=== PATIENT | female | born 1965 | race Asian ===

== ENCOUNTER 2017-09-18 12:12 | Inpatient (IN) | payer OTHER ==
[2017-09-18] MEDS: NS + KCL 20 MEQ 1,000 ML IV (01:54)
[~2017-09-18 12:12] MED LIST: LIDOCAINE 2% (SDV) 5 ML INJ
[2017-09-18] MEDS ORDERED: ONDANSETRON 4 MG INJ (16:13)
[2017-09-18] MEDS ORDERED: MIDAZOLAM 1 MG/ML 2 ML INJ (16:13)
[2017-09-18] MEDS ORDERED: METOCLOPRAMIDE 10 MG INJ (16:13)
[2017-09-18] MEDS ORDERED: ROCURONIUM 50 MG INJ ×2 (16:13→18:41)
[2017-09-18] MEDS ORDERED: PROPOFOL 20 ML (16:13)
[2017-09-18] MEDS ORDERED: CEFAZOLIN 1 GM INJ (16:38)
[2017-09-18] MEDS ORDERED: FENTAnyl 50 MCG/ML VIAL (17:02)
[2017-09-18] MEDS ORDERED: morphine 10 MG INJ (17:06)
[2017-09-18] MEDS: CEFAZOLIN 1 GM INJ (17:39)
[2017-09-18] MEDS: HEPARIN 1000 UNITS/ML 10 ML INJ (17:40)
[2017-09-18] MEDS: THROMBIN 5000 UNIT VIAL (17:40)
[2017-09-18] MEDS: GELATIN SIZE 100 SPONGE ×3 (17:40→18:55)
[2017-09-18] MEDS ORDERED: AL HYDROX/MG HYDROX/SIMETH 30 ML CUP PO (18:00)
[2017-09-18] MEDS ORDERED: NACL 0.9% 3 ML SYG IV (18:00)
[2017-09-18] MEDS: DOCUSATE SODIUM 100 MG CAP PO ×2 (18:00→21:00)
[2017-09-18] MEDS ORDERED: NALOXONE (0.4 MG/ML) INJ IV (18:00)
[2017-09-18] MEDS ORDERED: THROMBIN 5000 UNIT VIAL (18:29)
[2017-09-18] MEDS ORDERED: EPHEDrine SULFATE 50 MG/5 ML SYG (19:04)
[2017-09-18] MEDS ORDERED: PHENYLephrine (100 MCG/ML) 5ML SYG ×3 (19:10→19:31)
[2017-09-18] MEDS ORDERED: ALBUMIN HUMAN 5% 250 ML (20:06)
[2017-09-18] MEDS ORDERED: METOPROLOL 5 MG INJ (20:22)
[2017-09-18] MEDS: ONDANSETRON 4 MG INJ IV (23:33)
[2017-09-18] MEDS: morphine 1 MG/ML 30 ML (PCA) IV (23:46)
[2017-09-19] MEDS: CEFAZOLIN 1 GM/50 ML (PMX) 50 ML IVPB ×4 (00:01→17:55)
[2017-09-19 04:43] LABS: HEMATOCRIT 31.7 % (37.0-47.0); HEMOGLOBIN 10.5 g/dl (12.0-16.0)
[2017-09-19 05:09] LABS: ANION GAP 19 (8-16); BLOOD UREA NITROGEN 22 mg/dl (7-20); CALCIUM 8.6 mg/dl (8.4-10.2); CARBON DIOXIDE 22 mmol/L (21-31); CHLORIDE 106 mmol/L (97-110); CREATININE 0.89 mg/dl (0.44-1.00); GLUCOSE 174 mg/dl (70-220); POTASSIUM 4.1 mmol/L (3.5-5.1); SODIUM 143 mmol/L (135-144)
[2017-09-19] MEDS: SOD CHLORIDE 0.9% 1,000 ML IV ×2 (09:40→11:54)
[2017-09-19] MEDS: DOCUSATE SODIUM 100 MG CAP PO ×2 (09:40→21:24)
[2017-09-19] MEDS: NS + KCL 20 MEQ 1,000 ML IV (09:41)
[2017-09-19] MEDS: ACETAMINOPHEN 325 MG TAB PO (09:43)
[2017-09-19] MEDS: ONDANSETRON 4 MG INJ IV (15:42)
[2017-09-19 15:56] LABS: ADD MAN DIFF? NO; ADD UMIC NO; UR ASCORBIC ACID NEGATIVE (NEGATIVE); UR BILIRUBIN (Dip) NEGATIVE (NEGATIVE); UR BLOOD (Dip) NEGATIVE (NEGATIVE); UR CLARITY CLEAR (CLEAR); UR COLOR YELLOW (YELLOW); UR GLUCOSE (Dip) NEGATIVE (NEGATIVE); UR KETONES (Dip) NEGATIVE (NEGATIVE); UR LEUKOCYTE ESTERASE (Dip) NEGATIVE Leu/ul (NEGATIVE); UR NITRITE (Dip) NEGATIVE (NEGATIVE); UR SPECIFIC GRAVITY (Dip) 1.017 (1.003-1.030); UR TOTAL PROTEIN (Dip) NEGATIVE (NEGATIVE); UR UROBILINOGEN (Dip) NEGATIVE (NEGATIVE)
[2017-09-19 15:58] LABS: ABNORMAL IP MESSAGE 1; BASOPHILS % 0.1 % (0.0-2.0); HEMATOCRIT 28.1 % (37.0-47.0); HEMOGLOBIN 9.2 g/dl (12.0-16.0); LYMPHOCYTES # 1.5 10^3/ul (0.8-2.9); LYMPHOCYTES % 17.7 % (15.0-51.0); MEAN CORPUSCULAR HEMOGLOBIN 28.3 pg (29.0-33.0); MEAN CORPUSCULAR HGB CONC 32.7 g/dl (32.0-37.0); MEAN CORPUSCULAR VOLUME 86.5 fl (82.0-101.0); MEAN PLATELET VOLUME 9.7 fl (7.4-10.4); MONOCYTE # 0.9 10^3/ul (0.3-0.9); MONOCYTES % 10.7 % (0.0-11.0); NEUTROPHILS % 71.4 % (39.0-77.0); PLATELET COUNT 176 10^3/UL (140-415); RED BLOOD COUNT 3.25 10^6/ul (4.20-5.40); RED CELL DISTRIBUTION WIDTH 14.4 % (11.5-14.5)
[2017-09-19 15:58] LABS: WHITE BLOOD COUNT 8.3 10^3/ul (4.8-10.8)
[2017-09-19 16:00] LABS: POSITIVE DIFF @See below
[2017-09-19 16:14] LABS: LACTIC ACID 1.8 mmol/L (0.5-2.0)
[2017-09-19 16:15] LABS: ALANINE AMINOTRANSFERASE 68 IU/L (13-69); ALBUMIN 3.3 g/dl (3.3-4.9); ALBUMIN/GLOBULIN RATIO 1.22; ALKALINE PHOSPHATASE 62 IU/L (42-121); ANION GAP 15 (8-16); ASPARTATE AMINO TRANSFERASE 49 IU/L (15-46); BILIRUBIN,INDIRECT 0.8 mg/dl (0-1.1); BILIRUBIN,TOTAL 0.8 mg/dl (0.2-1.3); BLOOD UREA NITROGEN 30 mg/dl (7-20); CALCIUM 7.7 mg/dl (8.4-10.2); CARBON DIOXIDE 23 mmol/L (21-31); CHLORIDE 108 mmol/L (97-110); CREATININE 1.19 mg/dl (0.44-1.00); GLUCOSE 122 mg/dl (70-220); POTASSIUM 4.2 mmol/L (3.5-5.1); SODIUM 142 mmol/L (135-144)
[2017-09-19] MEDS: SOD CHLORIDE 0.9% 500 ML IV (16:18)
[2017-09-19] MEDS: DIGOXIN 500 MCG INJ IV (16:18)
[2017-09-19 16:27] LABS: INR 1.12; PROTIME 14.6 Sec (11.9-14.9); PT RATIO 1.1
[2017-09-19 16:28] LABS: PARTIAL THROMBOPLASTIN TIME 33.5 Sec (25.0-35.0)
[2017-09-19] MEDS ORDERED: PHENYLephrine 80 MG in DEXTROSE 5% 492 ML IV (16:30)
[2017-09-19 19:06] LABS: TROPONIN-I 0.018 ng/ml (0.00-0.12)
[2017-09-19] MEDS: morphine 1 MG/ML 30 ML (PCA) IV (20:00)
[2017-09-20] MEDS: NS + KCL 20 MEQ 1,000 ML IV ×2 (00:22→12:17)
[2017-09-20] MEDS: ACETAMINOPHEN 325 MG TAB PO ×3 (00:30→22:00)
[2017-09-20 01:19] LABS: TROPONIN-I 0.017 ng/ml (0.00-0.12)
[2017-09-20 04:56] LABS: WHITE BLOOD COUNT 7.9 10^3/ul (4.8-10.8)
[2017-09-20 04:56] LABS: HEMATOCRIT 22.8 % (37.0-47.0); HEMOGLOBIN 7.5 g/dl (12.0-16.0); MEAN CORPUSCULAR HEMOGLOBIN 28.4 pg (29.0-33.0); MEAN CORPUSCULAR HGB CONC 32.9 g/dl (32.0-37.0); MEAN CORPUSCULAR VOLUME 86.4 fl (82.0-101.0); MEAN PLATELET VOLUME 9.6 fl (7.4-10.4); PLATELET COUNT 138 10^3/UL (140-415); POSITIVE DIFF @See below; RED BLOOD COUNT 2.64 10^6/ul (4.20-5.40); RED CELL DISTRIBUTION WIDTH 14.3 % (11.5-14.5)
[2017-09-20 04:58] LABS: ADD MAN DIFF? YES
[2017-09-20 05:18] LABS: ALANINE AMINOTRANSFERASE 54 IU/L (13-69); ALBUMIN 2.5 g/dl (3.3-4.9); ALBUMIN/GLOBULIN RATIO 1.08; ALKALINE PHOSPHATASE 56 IU/L (42-121); ANION GAP 10 (8-16); ASPARTATE AMINO TRANSFERASE 57 IU/L (15-46); BLOOD UREA NITROGEN 17 mg/dl (7-20); CALCIUM 7.8 mg/dl (8.4-10.2); CARBON DIOXIDE 23 mmol/L (21-31); CHLORIDE 111 mmol/L (97-110); CREATININE 0.82 mg/dl (0.44-1.00); GLUCOSE 108 mg/dl (70-220); SODIUM 140 mmol/L (135-144); TOTAL PROTEIN 4.8 g/dl (6.1-8.1)
[2017-09-20 05:30] LABS: TROPONIN-I 0.012 ng/ml (0.00-0.12)
[2017-09-20] MEDS: PANTOPRAZOLE (EC) 40 MG TAB PO (06:21)
[2017-09-20 07:44] LABS: ANISOCYTOSIS 1+ (0-0); BAND NEUTROPHILS #M 0.6 10^3/ul (0.0-0.6); BAND NEUTROPHILS % (M) 8 % (0-4); BURR CELLS 1+ (0-0); GIANT THROMBO% (M) 1 % (0-0); LYMPHOCYTES % (M) 26 % (15-51); MONOCYTE #M 0.3 10^3/ul (0.3-0.9); MONOCYTES % (M) 4 % (0-11); OVALOCYTES 1+ (0-0); PLATELET ESTIMATE DECREASED; POIKILOCYTOSIS 1+ (0-0); POLYCHROMASIA 1+ (0-0); SEG NEUT #M 4.9 10^3/ul (1.6-7.5); SEGMENTED NEUTROPHILS (M) % 62 % (39-77); SMUDGE%M 27 % (0-0)
[2017-09-20] MEDS: DOCUSATE SODIUM 100 MG CAP PO ×2 (09:27→20:34)
[2017-09-20 14:39] LABS: WHITE BLOOD COUNT 7.4 10^3/ul (4.8-10.8)
[2017-09-20 14:39] LABS: HEMATOCRIT 23.4 % (37.0-47.0); HEMOGLOBIN 7.7 g/dl (12.0-16.0); MEAN CORPUSCULAR HGB CONC 32.9 g/dl (32.0-37.0); MEAN CORPUSCULAR VOLUME 85.1 fl (82.0-101.0); MEAN PLATELET VOLUME 9.6 fl (7.4-10.4); PLATELET COUNT 143 10^3/UL (140-415); POSITIVE DIFF @See below; RED BLOOD COUNT 2.75 10^6/ul (4.20-5.40); RED CELL DISTRIBUTION WIDTH 13.9 % (11.5-14.5)
[2017-09-20 14:40] LABS: ADD MAN DIFF? YES
[2017-09-20] MEDS: CEFTRIAXONE 1 GM/50 ML (PMX) 50 ML IVPB (15:48)
[2017-09-20] MEDS ORDERED: VANCOMYCIN IV PER PHARMACY XX (16:00)
[2017-09-20 16:19] LABS: BAND NEUTROPHILS #M 0.4 10^3/ul (0.0-0.6); BAND NEUTROPHILS % (M) 6 % (0-4); EOSINOPHILS % (M) 1 % (0-7); LYMPHOCYTES #M 1.4 10^3/ul (0.8-2.9); LYMPHOCYTES % (M) 19 % (15-51); MONOCYTE #M 0.1 10^3/ul (0.3-0.9); MONOCYTES % (M) 2 % (0-11); PLATELET ESTIMATE NORMAL; PROMYELOCYTES % (M) 1 % (0-0); SEG NEUT #M 5.3 10^3/ul (1.6-7.5); SEGMENTED NEUTROPHILS (M) % 71 % (39-77); SMUDGE%M 9 % (0-0)
[2017-09-20] MEDS: DIGOXIN 500 MCG INJ IV (16:30)
[2017-09-20] MEDS ORDERED: METOPROLOL 5 MG INJ IV (16:30)
[2017-09-20] MEDS: VANCOMYCIN 1.5 GM in SOD CHLORIDE 0.9% 250 ML IVPB (17:35)
[2017-09-20 20:00] LABS: IMMEDIATE SPIN CROSSMATCH 1 3
[2017-09-20] MEDS: ATENOLOL 25 MG TAB PO (20:34)
[2017-09-21] MEDS: LEVALBUTEROL (NEB) 0.63 MG/3 ML AMP HHN ×2 (00:38→08:02)
[2017-09-21] MEDS: NS + KCL 20 MEQ 1,000 ML IV ×4 (01:55→20:21)
[2017-09-21] MEDS: ACETAMINOPHEN 325 MG TAB PO (04:42)
[2017-09-21] MEDS: VANCOMYCIN 750 MG in DEXTROSE 5% 150 ML IVPB ×2 (04:43→16:08)
[2017-09-21] MEDS: PANTOPRAZOLE (EC) 40 MG TAB PO (05:56)
[2017-09-21 06:13] LABS: WHITE BLOOD COUNT 8.4 10^3/ul (4.8-10.8)
[2017-09-21 06:13] LABS: HEMATOCRIT 28.6 % (37.0-47.0); HEMOGLOBIN 9.9 g/dl (12.0-16.0); MEAN CORPUSCULAR HEMOGLOBIN 29.2 pg (29.0-33.0); MEAN CORPUSCULAR HGB CONC 34.6 g/dl (32.0-37.0); MEAN CORPUSCULAR VOLUME 84.4 fl (82.0-101.0); MEAN PLATELET VOLUME 10.1 fl (7.4-10.4); PLATELET COUNT 139 10^3/UL (140-415); POSITIVE DIFF @See below; RED BLOOD COUNT 3.39 10^6/ul (4.20-5.40); RED CELL DISTRIBUTION WIDTH 13.2 % (11.5-14.5)
[2017-09-21 06:14] LABS: ADD MAN DIFF? YES
[2017-09-21 06:29] LABS: ALANINE AMINOTRANSFERASE 69 IU/L (13-69); ALBUMIN 2.8 g/dl (3.3-4.9); ALKALINE PHOSPHATASE 81 IU/L (42-121); ANION GAP 10 (8-16); ASPARTATE AMINO TRANSFERASE 86 IU/L (15-46); BILIRUBIN,INDIRECT 1.3 mg/dl (0-1.1); BILIRUBIN,TOTAL 1.3 mg/dl (0.2-1.3); BLOOD UREA NITROGEN 7 mg/dl (7-20); CALCIUM 8.3 mg/dl (8.4-10.2); CARBON DIOXIDE 27 mmol/L (21-31); CHLORIDE 110 mmol/L (97-110); CREATININE 0.65 mg/dl (0.44-1.00); GLUCOSE 111 mg/dl (70-220); POTASSIUM 3.8 mmol/L (3.5-5.1); SODIUM 143 mmol/L (135-144); TOTAL PROTEIN 5.6 g/dl (6.1-8.1)
[2017-09-21 07:39] LABS: MONOTEST Negative (NEG)
[2017-09-21] MEDS: DOCUSATE SODIUM 100 MG CAP PO ×2 (08:40→20:22)
[2017-09-21] MEDS: ATENOLOL 25 MG TAB PO ×2 (08:41→20:23)
[2017-09-21 09:33] LABS: BAND NEUTROPHILS #M 1.4 10^3/ul (0.0-0.6); BAND NEUTROPHILS % (M) 17 % (0-4); EOSINOPHILS % (M) 1 % (0-7); GIANT THROMBO% (M) 5 % (0-0); LYMPHOCYTES #M 0.9 10^3/ul (0.8-2.9); LYMPHOCYTES % (M) 11 % (15-51); MONOCYTE #M 0.3 10^3/ul (0.3-0.9); MONOCYTES % (M) 4 % (0-11); PLATELET ESTIMATE DECREASED; REACTIVE LYMPHOCYTES #M 0.2 10^3/ul (0.0-0.0); REACTIVE LYMPHOCYTES% (M) 3 % (0-0); SEG NEUT #M 5.5 10^3/ul (1.6-7.5); SEGMENTED NEUTROPHILS (M) % 64 % (39-77); SMUDGE%M 4 % (0-0)
[2017-09-21 09:57] LABS: PRETRANSFUSION BILIRUBIN 0.2 mg/dl
[2017-09-21 09:57] LABS: POST-TRANSFUSION BILIRUBIN 1.1 mg/dl
[2017-09-21] MEDS: morphine 1 MG/ML 30 ML (PCA) IV (15:01)
[2017-09-21] MEDS: CEFTRIAXONE 1 GM/50 ML (PMX) 50 ML IVPB (15:06)
[2017-09-22] MEDS: NS + KCL 20 MEQ 1,000 ML IV ×3 (03:58→22:16)
[2017-09-22 04:32] LABS: ADD MAN DIFF? NO
[2017-09-22 04:42] LABS: BASOPHILS % 0.3 % (0.0-2.0); EOSINOPHILS # 0.1 10^3/ul (0.0-0.5); EOSINOPHILS % 1.7 % (0.0-7.0); HEMATOCRIT 25.6 % (37.0-47.0); HEMOGLOBIN 8.9 g/dl (12.0-16.0); LYMPHOCYTES # 1.3 10^3/ul (0.8-2.9); LYMPHOCYTES % 18.5 % (15.0-51.0); MEAN CORPUSCULAR HEMOGLOBIN 28.9 pg (29.0-33.0); MEAN CORPUSCULAR HGB CONC 34.8 g/dl (32.0-37.0); MEAN CORPUSCULAR VOLUME 83.1 fl (82.0-101.0); MEAN PLATELET VOLUME 10.1 fl (7.4-10.4); MONOCYTE # 0.6 10^3/ul (0.3-0.9); MONOCYTES % 7.9 % (0.0-11.0); NEUTROPHILS % 71.2 % (39.0-77.0); PLATELET COUNT 169 10^3/UL (140-415); RED BLOOD COUNT 3.08 10^6/ul (4.20-5.40); RED CELL DISTRIBUTION WIDTH 13.7 % (11.5-14.5)
[2017-09-22 04:42] LABS: WHITE BLOOD COUNT 7.1 10^3/ul (4.8-10.8)
[2017-09-22 05:16] LABS: ANION GAP 10 (8-16); BLOOD UREA NITROGEN 7 mg/dl (7-20); CALCIUM 8.2 mg/dl (8.4-10.2); CARBON DIOXIDE 26 mmol/L (21-31); CHLORIDE 110 mmol/L (97-110); GLUCOSE 103 mg/dl (70-220); POTASSIUM 3.8 mmol/L (3.5-5.1); SODIUM 142 mmol/L (135-144)
[2017-09-22] MEDS: PANTOPRAZOLE (EC) 40 MG TAB PO (06:00)
[2017-09-22] MEDS: VANCOMYCIN 750 MG in DEXTROSE 5% 150 ML IVPB ×3 (06:24→22:05)
[2017-09-22] MEDS: DOCUSATE SODIUM 100 MG CAP PO ×2 (09:00→22:05)
[2017-09-22] MEDS: ATENOLOL 25 MG TAB PO ×2 (09:00→22:05)
[2017-09-22] MEDS: CEFTRIAXONE 1 GM/50 ML (PMX) 50 ML IVPB (16:18)
[2017-09-22] MEDS ORDERED: FENTAnyl 50 MCG/ML VIAL ×2 (17:31→19:49)
[2017-09-22] MEDS ORDERED: CEFAZOLIN 1 GM INJ (17:31)
[2017-09-22] MEDS ORDERED: PROPOFOL 20 ML ×2 (17:31→19:01)
[2017-09-22] MEDS ORDERED: MIDAZOLAM 1 MG/ML 2 ML INJ (17:31)
[2017-09-22] MEDS ORDERED: ROCURONIUM 50 MG INJ ×2 (17:31→19:00)
[2017-09-22] MEDS ORDERED: METOCLOPRAMIDE 10 MG INJ (17:31)
[2017-09-22] MEDS ORDERED: GELATIN SIZE 100 SPONGE (17:42)
[2017-09-22] MEDS ORDERED: ROPIVACAINE 0.5 % 30 ML VIAL ×2 (17:42→18:36)
[2017-09-22] MEDS ORDERED: THROMBIN 5000 UNIT VIAL (17:42)
[2017-09-22] MEDS ORDERED: METOPROLOL 5 MG INJ ×2 (18:55→19:49)
[2017-09-22] MEDS: POLYMYXIN/BACITRACIN 1L IRRIG (19:10)
[2017-09-22] MEDS: ROPIVACAINE 0.5 % 30 ML VIAL (19:11)
[2017-09-22] MEDS ORDERED: NEOSTIGMINE 3 MG/3 ML SYRINGE (19:39)
[2017-09-22] MEDS ORDERED: GLYCOPYRROLATE 0.4 MG INJ (19:43)
[2017-09-22] MEDS ORDERED: LABETALOL HCL 20MG INJ (19:55)
[2017-09-22] MEDS ORDERED: ONDANSETRON 4 MG INJ IV (20:00)
[2017-09-22] MEDS ORDERED: DIPHENHYDRAMINE 50 MG INJ IV (20:00)
[2017-09-22] MEDS ORDERED: hydrALAzine 20 MG INJ IV (20:00)
[2017-09-22] MEDS ORDERED: morphine 2 MG INJ IV (20:00)
[2017-09-22] MEDS: morphine 2 MG INJ IV (20:21)
[2017-09-22] MEDS: LABETALOL HCL 20MG INJ IV (20:37)
[2017-09-22] MEDS: morphine 10 MG INJ IV ×2 (20:38→21:12)
[2017-09-22] MEDS: MEPERIDINE 25 MG INJ IV (20:42)
[2017-09-22] MEDS: morphine 1 MG/ML 30 ML (PCA) IV (23:31)
[2017-09-23 05:10] LABS: WHITE BLOOD COUNT 6.5 10^3/ul (4.8-10.8)
[2017-09-23 05:10] LABS: ADD MAN DIFF? NO; BASOPHILS % 0.3 % (0.0-2.0); EOSINOPHILS # 0.1 10^3/ul (0.0-0.5); HEMATOCRIT 23.9 % (37.0-47.0); HEMOGLOBIN 8.2 g/dl (12.0-16.0); LYMPHOCYTES # 1.5 10^3/ul (0.8-2.9); LYMPHOCYTES % 22.9 % (15.0-51.0); MEAN CORPUSCULAR HEMOGLOBIN 28.8 pg (29.0-33.0); MEAN CORPUSCULAR HGB CONC 34.3 g/dl (32.0-37.0); MEAN CORPUSCULAR VOLUME 83.9 fl (82.0-101.0); MEAN PLATELET VOLUME 10.6 fl (7.4-10.4); MONOCYTE # 0.6 10^3/ul (0.3-0.9); MONOCYTES % 9.1 % (0.0-11.0); NEUTROPHIL # 4.2 10^3/ul (1.6-7.5); NEUTROPHILS % 65.1 % (39.0-77.0); PLATELET COUNT 214 10^3/UL (140-415); RED BLOOD COUNT 2.85 10^6/ul (4.20-5.40); RED CELL DISTRIBUTION WIDTH 13.7 % (11.5-14.5)
[2017-09-23] MEDS: PANTOPRAZOLE (EC) 40 MG TAB PO (05:22)
[2017-09-23 06:25] LABS: ANION GAP 13 (8-16); BLOOD UREA NITROGEN 9 mg/dl (7-20); CALCIUM 7.9 mg/dl (8.4-10.2); CARBON DIOXIDE 24 mmol/L (21-31); CHLORIDE 108 mmol/L (97-110); CREATININE 0.52 mg/dl (0.44-1.00); GLUCOSE 94 mg/dl (70-220); POTASSIUM 3.9 mmol/L (3.5-5.1); SODIUM 141 mmol/L (135-144)
[2017-09-23] MEDS: VANCOMYCIN 750 MG in DEXTROSE 5% 150 ML IVPB ×2 (07:29→14:00)
[2017-09-23] MEDS: ATENOLOL 25 MG TAB PO ×2 (09:52→21:54)
[2017-09-23] MEDS: DOCUSATE SODIUM 100 MG CAP PO ×2 (09:52→21:54)
[2017-09-23 13:05] LABS: INFLUENZA VIRUS A/B SOURCE NASOPHARYNGEAL
[2017-09-23 14:29] LABS: VANCOMYCIN,TROUGH 7.6 ug/ml (10.0-20.0)
[2017-09-23] MEDS: HYDROCODONE/APAP (5/325) TAB PO ×2 (15:36→21:57)
[2017-09-23] MEDS: LEVALBUTEROL (NEB) 0.63 MG/3 ML AMP HHN (15:43)
[2017-09-23] MEDS: CEFTRIAXONE 1 GM/50 ML (PMX) 50 ML IVPB (16:00)
[2017-09-23] MEDS ORDERED: VANCOMYCIN 1 GM 250 ML IVPB (22:00)
[2017-09-24] MEDS: HYDROCODONE/APAP (5/325) TAB PO ×4 (04:44→23:25)
[2017-09-24] MEDS: PANTOPRAZOLE (EC) 40 MG TAB PO (04:44)
[2017-09-24 05:00] LABS: ADD MAN DIFF? NO
[2017-09-24 05:04] LABS: WHITE BLOOD COUNT 7.7 10^3/ul (4.8-10.8)
[2017-09-24 05:04] LABS: BASOPHILS % 0.3 % (0.0-2.0); EOSINOPHILS # 0.1 10^3/ul (0.0-0.5); EOSINOPHILS % 0.7 % (0.0-7.0); HEMATOCRIT 26.9 % (37.0-47.0); HEMOGLOBIN 9.2 g/dl (12.0-16.0); LYMPHOCYTES # 1.1 10^3/ul (0.8-2.9); LYMPHOCYTES % 13.8 % (15.0-51.0); MEAN CORPUSCULAR HEMOGLOBIN 28.2 pg (29.0-33.0); MEAN CORPUSCULAR HGB CONC 34.2 g/dl (32.0-37.0); MEAN CORPUSCULAR VOLUME 82.5 fl (82.0-101.0); MEAN PLATELET VOLUME 9.6 fl (7.4-10.4); MONOCYTE # 0.8 10^3/ul (0.3-0.9); MONOCYTES % 10.8 % (0.0-11.0); NEUTROPHIL # 5.6 10^3/ul (1.6-7.5); NEUTROPHILS % 73.2 % (39.0-77.0); PLATELET COUNT 276 10^3/UL (140-415); RED BLOOD COUNT 3.26 10^6/ul (4.20-5.40); RED CELL DISTRIBUTION WIDTH 13.6 % (11.5-14.5)
[2017-09-24 05:23] LABS: ANION GAP 12 (8-16); BLOOD UREA NITROGEN 8 mg/dl (7-20); CALCIUM 8.2 mg/dl (8.4-10.2); CARBON DIOXIDE 28 mmol/L (21-31); CHLORIDE 107 mmol/L (97-110); GLUCOSE 129 mg/dl (70-220); POTASSIUM 3.2 mmol/L (3.5-5.1); SODIUM 144 mmol/L (135-144)
[2017-09-24] MEDS: ATENOLOL 25 MG TAB PO ×2 (08:28→20:08)
[2017-09-24] MEDS: DOCUSATE SODIUM 100 MG CAP PO ×2 (08:28→20:08)
[2017-09-24 14:03] LABS: PROCALCITONIN 1.98 ng/mL (<0.10)
[2017-09-24] MEDS: POTASSIUM CHLORIDE (SR) 20 MEQ TAB PO (16:00)
[2017-09-24] MEDS: CEFTRIAXONE 1 GM/50 ML (PMX) 50 ML IVPB (16:00)
[2017-09-24] MEDS: MAGNESIUM HYDROXIDE 30ML CUP PO (16:57)
[2017-09-24] MEDS ORDERED: BISACODYL (EC) 5 MG TAB PO (17:00)
[2017-09-25] MEDS ORDERED: ZOLPIDEM 5 MG TAB PO
[2017-09-25] MEDS: HYDROCODONE/APAP (5/325) TAB PO ×3 (00:02→16:55)
[2017-09-25 05:11] LABS: ADD MAN DIFF? NO
[2017-09-25 05:17] LABS: WHITE BLOOD COUNT 6.3 10^3/ul (4.8-10.8)
[2017-09-25 05:17] LABS: BASOPHILS % 0.3 % (0.0-2.0); EOSINOPHILS # 0.1 10^3/ul (0.0-0.5); EOSINOPHILS % 1.1 % (0.0-7.0); HEMATOCRIT 25.8 % (37.0-47.0); LYMPHOCYTES # 1.3 10^3/ul (0.8-2.9); LYMPHOCYTES % 20.8 % (15.0-51.0); MEAN CORPUSCULAR HEMOGLOBIN 28.7 pg (29.0-33.0); MEAN CORPUSCULAR HGB CONC 34.9 g/dl (32.0-37.0); MEAN CORPUSCULAR VOLUME 82.2 fl (82.0-101.0); MEAN PLATELET VOLUME 9.6 fl (7.4-10.4); MONOCYTE # 0.5 10^3/ul (0.3-0.9); MONOCYTES % 7.5 % (0.0-11.0); NEUTROPHIL # 4.3 10^3/ul (1.6-7.5); NEUTROPHILS % 68.2 % (39.0-77.0); PLATELET COUNT 341 10^3/UL (140-415); RED BLOOD COUNT 3.14 10^6/ul (4.20-5.40)
[2017-09-25] MEDS: PANTOPRAZOLE (EC) 40 MG TAB PO (05:25)
[2017-09-25 05:28] LABS: ANION GAP 14 (8-16); BLOOD UREA NITROGEN 8 mg/dl (7-20); CALCIUM 8.4 mg/dl (8.4-10.2); CARBON DIOXIDE 29 mmol/L (21-31); CHLORIDE 106 mmol/L (97-110); CREATININE 0.56 mg/dl (0.44-1.00); GLUCOSE 111 mg/dl (70-220); POTASSIUM 3.4 mmol/L (3.5-5.1); SODIUM 146 mmol/L (135-144)
[2017-09-25] MEDS: DOCUSATE SODIUM 100 MG CAP PO (08:27)
[2017-09-25] MEDS: ATENOLOL 25 MG TAB PO (08:28)
[2017-09-25] MEDS: CEFTRIAXONE 1 GM/50 ML (PMX) 50 ML IVPB (16:55)
== END 2017-09-25 19:55 | disposition home health service (06) | DRG 454 ==
LOC: REC 12:12 → MS1 09-23 17:25 → ICU 17:59
PROC: 0SG10A0 Fusion of 2 or more Lumbar Vertebral Joints with Interbody Fusion Device, Anterior Approach, Anterior Column, Open Approach (ICD-10-PCS; principal; 2017-09-18 16:37)
PROC: 0SG10Z1 (ICD-10-PCS; 2017-09-18 16:37)
PROC: 0SG30A0 Fusion of Lumbosacral Joint with Interbody Fusion Device, Anterior Approach, Anterior Column, Open Approach (ICD-10-PCS; 2017-09-18 16:37)
PROC: 0SB20ZZ Excision of Lumbar Vertebral Disc, Open Approach (ICD-10-PCS; 2017-09-18 16:37)
PROC: 0SB40ZZ Excision of Lumbosacral Disc, Open Approach (ICD-10-PCS; 2017-09-18 16:37)
PROC: 0SG30Z1 (ICD-10-PCS; 2017-09-18 16:37)
PROC: 30233N1 Transfusion of Nonautologous Red Blood Cells into Peripheral Vein, Percutaneous Approach (ICD-10-PCS; 2017-09-18 16:37)
DX: M51.16 Intervertebral disc disorders with radiculopathy, lumbar region (principal); D62 Acute posthemorrhagic anemia; I10 Essential (primary) hypertension; J98.11 Atelectasis; M51.17 Intervertebral disc disorders with radiculopathy, lumbosacral region; M47.897 Other spondylosis, lumbosacral region; D64.9 Anemia, unspecified; R00.0 Tachycardia, unspecified; R79.89 Other specified abnormal findings of blood chemistry; R50.82 Postprocedural fever; J45.909 Unspecified asthma, uncomplicated; K21.9 Gastro-esophageal reflux disease without esophagitis; E78.5 Hyperlipidemia, unspecified; I95.81 Postprocedural hypotension; J02.9 Acute pharyngitis, unspecified
CPT/HCPCS: 36430; 71045; 72100; 72131; 80048; 80053; 80202; 81003; 83605; 84145; 84443; 84484; 85014; 85018; 85025; 85610; 85730; 86078; 86308; 86756; 86850; 86900; 86901; 86920; 87040; 87081; 87086; 87275; 87276; 87279; 87280; 87400; 87502; 88304; 93005; 93306; 93970; 93971; 94640; 94664; 97116; 97162; 97530